=== PATIENT | female | born 1935 | race Hispanic/Latino ===

== ENCOUNTER 2022-04-29 09:55 | Emergency (ER) | payer SELFPAY | END 2022-04-29 12:40 | disposition home or self-care (01) | LOC: MADERS 09:55 | DX: I10 Essential (primary) hypertension (principal); T46.5X5A Adverse effect of other antihypertensive drugs, initial encounter; E11.9 Type 2 diabetes mellitus without complications; Z79.4 Long term (current) use of insulin; E78.00 Pure hypercholesterolemia, unspecified | CPT/HCPCS: 94760 ==